=== PATIENT | female | born 1955 | race American Indian/Alaskan Native ===

== ENCOUNTER 2017-05-29 17:18 | Emergency (ER) | payer MEDICARE ==
[2017-05-29 18:19] LABS: Basophils % (Auto) 0.8 % (0.0-1.8); Eosinophils % (Auto) 3.1 % (0.0-4.3); Hematocrit 36.3 % (30.3-42.9); Hemoglobin 12.2 gm/dl (10.1-14.3); Mean Corpuscular HGB Conc 34 % (30-34); Mean Corpuscular Hemoglobin 30 pg (28-32); Mean Corpuscular Volume 89 fl (79-97); Platelet Count 185 K/mm3 (140-440); Red Cell Distribution Width 15.3 % (13.2-15.2); White Blood Count 7.8 K/mm3 (4.5-11.0)
[2017-05-29 18:31] LABS: INR 1.72 (0.87-1.13)
[2017-05-29 18:53] LABS: Anion Gap 19 mmol/L; Blood Urea Nitrogen 7 mg/dL (7-17); Calcium 9.2 mg/dL (8.4-10.2); Carbon Dioxide 25 mmol/L (22-30); Chloride 99.7 mmol/L (98-107); Glucose 75 mg/dL (65-100); Potassium 4.1 mmol/L (3.6-5.0); Sodium 140 mmol/L (137-145)
--- NOTE | 2017-05-29 19:20 | XRay Report ---
FINAL REPORT EXAM: XR CHEST ROUTINE 2V HISTORY: Shortness of breath TECHNIQUE: PA and lateral chest radiographs PRIORS: None. FINDINGS: No mediastinal shift. Cardiac silhouette is not enlarged. No pneumothorax, effusion, or focal pulmonary opacity. Mild lower lung interstitial prominence. No acute skeletal finding. IMPRESSION: Mild lower lung interstitial prominence may be secondary to edema or infection. No focal airspace disease.
[2017-05-29] MEDS ORDERED: MORPHINE IM ONE (23:42)
[2017-05-29] MEDS ORDERED: TORADOL IM ONE (23:43)
[2017-05-29] MEDS ORDERED: LASIX PO ONE (23:43)
[2017-05-29] MEDS ORDERED: ZOFRAN IM ONE (23:43)
--- NOTE | 2017-05-29 23:48 | Emergency Department Report ---
HPI - General Chief Complaint: Back Pain/Injury Time Seen by Provider: 05/29/17 23:35 - HPI HPI: Room 3 The patient is a 61-year-old female presenting with a chief complaint of back and right lower extremity pain. The patient states she has a history of this pain is usually followed in a pain clinic. The patient states she ran out of her pain medication 5 days ago saw her pain is now uncontrolled. The patient states she recently changed insurance and her pain clinic does not accept the new coverage. Patient states she has not been given a referral to another pain clinic. Patient denies any other complaints when asked. Patient does acknowledge she has not been taking her diuretic as prescribed because she does not like went to the bathroom frequently. The patient gives her pain a score of 10/10 Location: Right lower extremity/hip Duration: Uncontrolled times 5 days, see above Quality: Pain Severity: 10/10 Modifying factors: [see above] Context: [see above] Mode of transportation: [not driving] ED Past Medical Hx - Past Medical History Hx Hypertension: Yes Hx Congestive Heart Failure: Yes Hx Deep Vein Thrombosis: Yes (LEFT LEG) Hx Arthritis: Yes Additional medical history: CHRONIC BACK PAIN. HIGH CHOLESTEROL - Surgical History Hx Breast Surgery: Yes (L breast x3 secondary to mass) Additional Surgical History: left breast surgery x 3 secondary to mass, back surgery 08, hysterectomy - Family History Family history: no significant - Social History Smoking Status: Current Every Day Smoker (1/2 pack per day) Substance Use Type: None (denies illicit drug use), Prescribed - Medications Home Medications: Home Medications Medication Instructions Recorded Confirmed Last Taken Type ALPRAZolam [Xanax TAB] 1 mg PO BID PRN 12/24/13 06/08/16 11/28/15 History Oxycodone HCl/Acetaminophen 1 each PO Q6HR PRN 12/24/13 06/08/16 11/29/15 History [Percocet 10/325 mg] Potassium Chloride [K-Dur] 10 meq PO QDAY 12/24/13 06/08/16 11/22/15 History Pravastatin (Nf) [Pravachol] 40 mg PO QHS 12/24/13 06/08/16 11/22/15 History Warfarin [Coumadin] 5 mg PO QDAY 12/24/13 06/08/16 11/22/15 History B12/Levomefolate Calcium/B-6 1 each PO DAILY 06/08/14 06/08/16 10/25/15 History [Folbic Rf Tablet] Folic Acid [Folvite] 1 mg PO QDAY 06/08/14 06/08/16 11/15/15 History Warfarin [Coumadin] 5 mg PO QDAY #10 tablet 11/30/15 06/08/16 Unknown Rx traMADol [Ultram] 50 mg PO Q6HR PRN #10 tablet 11/30/15 06/08/16 Unknown Rx ALPRAZolam [Alprazolam] 06/08/16 Unknown History ALPRAZolam [Alprazolam] 06/08/16 Unknown History ALPRAZolam [Alprazolam] 1 mg PO DAILY 06/08/16 06/08/16 Unknown History ALPRAZolam [Alprazolam] 1 mg PO DAILY 06/08/16 06/08/16 Unknown History Triamter/Hctz 75-50 mg [Maxzide 1 tab PO QDAY 06/08/16 06/08/16 Unknown History 75-50 mg] oxyCODONE /ACETAMINOPHEN [Percocet 1 tab PO Q6HR PRN #20 tablet 06/08/16 Unknown Rx 5/325] Ibuprofen [Motrin 800 MG tab] 800 mg PO Q8HR PRN #20 tablet 05/29/17 Unknown Rx oxyCODONE /ACETAMINOPHEN [Percocet 1 tab PO Q6HR PRN #20 tablet 05/29/17 Unknown Rx 5/325] ED Review of Systems ROS: Stated complaint: BACK AND LEG PAIN Other details as noted in HPI Comment: All other systems reviewed and negative Constitutional: denies: chills, fever Eyes: denies: eye pain, eye discharge, vision change ENT: denies: ear pain, throat pain Respiratory: denies: cough, shortness of breath, wheezing Cardiovascular: denies: chest pain, palpitations Endocrine: no symptoms reported Gastrointestinal: denies: abdominal pain, nausea, diarrhea Genitourinary: denies: urgency, dysuria, discharge Musculoskeletal: back pain, arthralgia, myalgia Skin: denies: rash, lesions Neurological: denies: headache, weakness, paresthesias Psychiatric: denies: anxiety, depression Hematological/Lymphatic: denies: easy bleeding, easy bruising Physical Exam - Physical Exam Vital Signs: Vital Signs 05/29/17 05/29/17 17:45 23:13 Temperature 98.4 F 98.7 F Pulse Rate 95 H 88 Respiratory 20 18 Rate Blood Pressure 170/114 155/108 O2 Sat by Pulse 95 Oximetry Physical Exam: GENERAL: The patient is well-developed well-nourished female sitting on stretcher not appearing to be in acute distress. [] HEENT: Normocephalic. Atraumatic. Extraocular motions are intact. Patient has moist mucous membranes. NECK: Supple. Trachea midline CHEST/LUNGS: Clear to auscultation. There is no respiratory distress noted. HEART/CARDIOVASCULAR: Regular. There is no tachycardia. There is no gallop rub or murmur. ABDOMEN: Abdomen is soft, nontender. Patient has normal bowel sounds. There is no abdominal distention. SKIN: There is no rash. There is no diaphoresis. NEURO: The patient is awake, alert, and oriented. The patient is cooperative. The patient has normal speech MUSCULOSKELETAL: There is no evidence of acute injury. ED Course Vital Signs 05/29/17 05/29/17 17:45 23:13 Temperature 98.4 F 98.7 F Pulse Rate 95 H 88 Respiratory 20 18 Rate Blood Pressure 170/114 155/108 O2 Sat by Pulse 95 Oximetry ED Medical Decision Making - Lab Data Result diagrams: 05/29/17 18:06 05/29/17 18:06 Laboratory Tests 05/29/17 05/29/17 05/29/17 18:06 18:06 18:06 WBC 7.8 RBC 4.10 Hgb 12.2 Hct 36.3 MCV 89 MCH 30 MCHC 34 RDW 15.3 H Plt Count 185 Lymph % (Auto) 25.7 Ballard % (Auto) 8.0 H Eos % (Auto) 3.1 Baso % (Auto) 0.8 Lymph # 2.0 Ballard # 0.6 Eos # 0.2 Baso # 0.1 Seg Neutrophils % 62.4 Seg Neutrophils # 4.9 PT 21.1 H INR 1.72 H Sodium 140 Potassium 4.1 Chloride 99.7 Carbon Dioxide 25 Anion Gap 19 BUN 7 Creatinine 0.4 L Estimated GFR > 60 BUN/Creatinine Ratio 17.50 Glucose 75 Calcium 9.2 Troponin T < 0.010 NT-Pro-B Natriuret Pep 341.4 - EKG Data -: EKG Interpreted by Me EKG shows normal: sinus rhythm Rate: normal - EKG Data When compared to previous EKG there are: no significant change Interpretation: unchanged when compared t (06/08/2016) - Radiology Data Radiology results: image reviewed (chest x-ray) interpreted by me: Chest x-ray-no focal infiltrates, no pneumothorax - Differential Diagnosis sciatica, lumbar radiculopathy, chronic back pain Critical care attestation.: If time is entered above; I have spent that time in minutes in the direct care of this critically ill patient, excluding procedure time. ED Disposition Clinical Impression: Medication refill, Lumbar radiculopathy, chronic, Chronic back pain Disposition: TO HOME OR SELFCARE Is pt being admited?: No Does the pt Need Aspirin: No Condition: Stable Instructions: Chronic Back Pain (ED) Additional Instructions: Return to the emergency department immediately should you develop worsening symptoms, fever, inability to tolerate food or liquid or any other concerns. Prescriptions: Ibuprofen [Motrin 800 MG tab] 800 mg PO Q8HR PRN #20 tablet PRN Reason: Pain oxyCODONE /ACETAMINOPHEN [Percocet 5/325] 1 tab PO Q6HR PRN #20 tablet PRN Reason: Pain Referrals: PRIMARY CARE [Primary Care Provider] - 3-5 Days PAIN SPECIALIST [facility] [Provider Group] - 3-5 Days PAIN CARE, [facility] [Provider Group] - 3-5 Days Time of Disposition: 23:53
[2017-05-30 00:30] VITALS: BP 166/89
== END 2017-05-30 00:40 | disposition home or self-care (01) ==
LOC: ED 17:18
DX: M54.16 Radiculopathy, lumbar region (principal); M54.9 Dorsalgia, unspecified; G89.29 Other chronic pain; I10 Essential (primary) hypertension; I50.9 Heart failure, unspecified; Z86.718 Personal history of other venous thrombosis and embolism; F17.200 Nicotine dependence, unspecified, uncomplicated
CPT/HCPCS: 36415; 71020; 80048; 83880; 84484; 85025; 85610; 93005; 93010; 96372; 99284; J1885; J2270; J2405

== ENCOUNTER 2018-04-07 12:53 | Emergency (ER) | payer MEDICARE ==
[2018-04-07] MEDS ORDERED: ASPIRIN PO ONE (15:41)
--- NOTE | 2018-04-07 15:49 | Emergency Department Report ---
ED Chest Pain HPI - General Chief Complaint: Extremity Problem,Nontraumatic Stated Complaint: LT LEG PAIN Time Seen by Provider: 04/07/18 15:38 Source: EMS Mode of arrival: Stretcher Limitations: No Limitations - History of Present Illness Initial Comments: Back patient is 62-year-old female presents to emergency room with left lower extremity pain and swelling 1 week. Patient states the swelling is intermittent and has resolved now. Patient states that 1 day ago she started she developed chest pain and shortness of breath. Patient states history of DVTs in the past. Patient is compliant with all her medication and is currently taking Coumadin. MD Complaint: chest pain -: Sudden, days(s) (1 day ago) Onset: during rest Pain Location: substernal, left chest Pain Radiation: none Severity: moderate Severity scale (0 -10): 7 Quality: tightness, aching Consistency: constant Improves With: rest, remaining still Worsens With: exertion re: dyspnea. denies: nausea, vomting, diaphoresis, sense of impending doom Other Symptoms: leg swelling, palpitations. denies: cough, fever, syncope, rash , acid taste in mouth Treatments Prior to Arrival: oxygen Aspirin use within the Past 7 Days: (1) Yes - Related Data On Oral Contraceptives: No Home Medications Medication Instructions Recorded Confirmed Last Taken ALPRAZolam [Xanax TAB] 1 mg PO BID PRN 12/24/13 06/08/16 11/28/15 Oxycodone HCl/Acetaminophen 1 each PO Q6HR PRN 12/24/13 06/08/16 11/29/15 [Percocet 10/325 mg] Potassium Chloride [K-Dur] 10 meq PO QDAY 12/24/13 06/08/16 11/22/15 Pravastatin [Pravachol] 40 mg PO QHS 12/24/13 06/08/16 11/22/15 Warfarin [Coumadin] 5 mg PO QDAY 12/24/13 06/08/16 11/22/15 B12/Levomefolate Calcium/B-6 1 each PO DAILY 06/08/14 06/08/16 10/25/15 [Folbic Rf Tablet] Folic Acid [Folvite] 1 mg PO QDAY 06/08/14 06/08/16 11/15/15 ALPRAZolam [Alprazolam] 06/08/16 Unknown ALPRAZolam [Alprazolam] 06/08/16 Unknown ALPRAZolam [Alprazolam] 1 mg PO DAILY 06/08/16 06/08/16 Unknown ALPRAZolam [Alprazolam] 1 mg PO DAILY 06/08/16 06/08/16 Unknown Triamter/Hctz 75-50 mg (Nf) 1 tab PO QDAY 06/08/16 06/08/16 Unknown [Maxzide 75-50 mg] Previous Rx's Medication Instructions Recorded Last Taken Type Warfarin [Coumadin] 5 mg PO QDAY #10 tablet 11/30/15 Unknown Rx traMADol [Ultram] 50 mg PO Q6HR PRN #10 tablet 11/30/15 Unknown Rx oxyCODONE /ACETAMINOPHEN [Percocet 1 tab PO Q6HR PRN #20 tablet 06/08/16 Unknown Rx 5/325] Ibuprofen [Motrin 800 MG tab] 800 mg PO Q8HR PRN #20 tablet 05/29/17 Unknown Rx oxyCODONE /ACETAMINOPHEN [Percocet 1 tab PO Q6HR PRN #20 tablet 05/29/17 Unknown Rx 5/325] Allergies Allergy/AdvReac Type Severity Reaction Status Date / Time No Known Allergies Allergy Verified 05/29/17 17:38 Heart Score - HEART Score History: Moderately suspicious EKG: Normal Age: 45-65 Risk factors: > 3 risk factors or hx of atherosclerotic disease Troponin: < normal limit HEART Score: 4 ED Review of Systems ROS: Stated complaint: LT LEG PAIN Other details as noted in HPI Constitutional: denies: chills, fever Eyes: denies: eye pain, eye discharge, vision change ENT: denies: ear pain, throat pain Respiratory: shortness of breath, SOB with exertion, SOB at rest. denies: cough , wheezing Cardiovascular: chest pain, palpitations Endocrine: no symptoms reported Gastrointestinal: denies: abdominal pain, nausea, diarrhea Genitourinary: denies: urgency, dysuria, discharge Musculoskeletal: denies: back pain, joint swelling, arthralgia Skin: denies: rash, lesions Neurological: denies: headache, weakness, paresthesias Psychiatric: denies: anxiety, depression Hematological/Lymphatic: denies: easy bleeding, easy bruising ED Past Medical Hx - Past Medical History Previous Medical History?: Yes Hx Hypertension: Yes Hx Congestive Heart Failure: Yes Hx Deep Vein Thrombosis: Yes (LEFT LEG) Hx Arthritis: Yes Additional medical history: CHRONIC BACK PAIN. HIGH CHOLESTEROL - Surgical History Past Surgical History?: Yes Hx Breast Surgery: Yes (L breast x3 secondary to mass) Additional Surgical History: left breast surgery x 3 secondary to mass, back surgery 08, hysterectomy - Family History Family history: hypertension - Social History Smoking Status: Current Every Day Smoker Substance Use Type: None - Medications Home Medications: Home Medications Medication Instructions Recorded Confirmed Last Taken Type ALPRAZolam [Xanax TAB] 1 mg PO BID PRN 12/24/13 06/08/16 11/28/15 History Oxycodone HCl/Acetaminophen 1 each PO Q6HR PRN 12/24/13 06/08/16 11/29/15 History [Percocet 10/325 mg] Potassium Chloride [K-Dur] 10 meq PO QDAY 12/24/13 06/08/16 11/22/15 History Pravastatin [Pravachol] 40 mg PO QHS 12/24/13 06/08/16 11/22/15 History Warfarin [Coumadin] 5 mg PO QDAY 12/24/13 06/08/16 11/22/15 History B12/Levomefolate Calcium/B-6 1 each PO DAILY 06/08/14 06/08/16 10/25/15 History [Folbic Rf Tablet] Folic Acid [Folvite] 1 mg PO QDAY 06/08/14 06/08/16 11/15/15 History Warfarin [Coumadin] 5 mg PO QDAY #10 tablet 11/30/15 06/08/16 Unknown Rx traMADol [Ultram] 50 mg PO Q6HR PRN #10 tablet 11/30/15 06/08/16 Unknown Rx ALPRAZolam [Alprazolam] 06/08/16 Unknown History ALPRAZolam [Alprazolam] 06/08/16 Unknown History ALPRAZolam [Alprazolam] 1 mg PO DAILY 06/08/16 06/08/16 Unknown History ALPRAZolam [Alprazolam] 1 mg PO DAILY 06/08/16 06/08/16 Unknown History Triamter/Hctz 75-50 mg (Nf) 1 tab PO QDAY 06/08/16 06/08/16 Unknown History [Maxzide 75-50 mg] oxyCODONE /ACETAMINOPHEN [Percocet 1 tab PO Q6HR PRN #20 tablet 06/08/16 Unknown Rx 5/325] Ibuprofen [Motrin 800 MG tab] 800 mg PO Q8HR PRN #20 tablet 05/29/17 Unknown Rx oxyCODONE /ACETAMINOPHEN [Percocet 1 tab PO Q6HR PRN #20 tablet 05/29/17 Unknown Rx 5/325] ED Physical Exam - General Limitations: No Limitations General appearance: alert, in no apparent distress - Head Head exam: Present: atraumatic, normocephalic - Eye Eye exam: Present: normal appearance - ENT ENT exam: Present: mucous membranes moist - Neck Neck exam: Present: normal inspection - Respiratory Respiratory exam: Present: normal lung sounds bilaterally. Absent: respiratory distress - Cardiovascular Cardiovascular Exam: Present: regular rate, normal rhythm. Absent: systolic murmur, diastolic murmur, rubs, gallop - GI/Abdominal GI/Abdominal exam: Present: soft, normal bowel sounds - Extremities Exam Extremities exam: Present: normal inspection, full ROM, tenderness (left leg tenderness. left calf tenderness) - Back Exam Back exam: Present: normal inspection - Neurological Exam Neurological exam: Present: alert, oriented X3 - Psychiatric Psychiatric exam: Present: normal affect, normal mood - Skin Skin exam: Present: warm, dry, intact, normal color. Absent: rash ED Course Vital Signs 04/07/18 04/07/18 04/07/18 14:03 14:04 14:15 Temperature 97.5 F L Pulse Rate 85 87 84 Respiratory 12 12 16 Rate Blood Pressure 106/71 116/81 Blood Pressure 106/71 [Right] O2 Sat by Pulse 98 95 99 Oximetry 04/07/18 04/07/18 04/07/18 14:27 14:30 14:45 Temperature 97.5 F L Pulse Rate 85 78 86 Respiratory 12 15 19 Rate Blood Pressure 106/71 108/77 109/62 Blood Pressure 106/71 [Right] O2 Sat by Pulse 98 97 97 Oximetry 04/07/18 04/07/18 04/07/18 15:00 15:15 15:30 Temperature Pulse Rate 75 84 Respiratory 12 14 18 Rate Blood Pressure 110/80 111/72 117/79 Blood Pressure [Right] O2 Sat by Pulse 99 96 98 Oximetry 04/07/18 04/07/1804/07/18 15:45 16:00 16:52 Temperature Pulse Rate 74 76 78 Respiratory 12 13 17 Rate Blood Pressure 104/74 104/75 104/75 Blood Pressure [Right] O2 Sat by Pulse 99 98 Oximetry 04/07/18 04/07/18 04/07/18 17:00 17:15 17:30 Temperature Pulse Rate 77 89 Respiratory 22 20 20 Rate Blood Pressure 116/83 122/80 117/82 Blood Pressure [Right] O2 Sat by Pulse 100 99 Oximetry 04/07/18 04/07/18 04/07/18 17:45 18:00 18:15 Temperature Pulse Rate 78 81 Respiratory 17 19 15 Rate Blood Pressure 108/78 116/79 110/76 Blood Pressure [Right] O2 Sat by Pulse 97 96 97 Oximetry 04/07/18 04/07/18 04/07/18 18:30 18:45 19:00 Temperature Pulse Rate Respiratory 13 18 15 Rate Blood Pressure 117/81 116/80 105/77 Blood Pressure [Right] O2 Sat by Pulse 98 98 99 Oximetry 04/07/18 19:30 Temperature 98.2 F Pulse Rate 82 Respiratory 18 Rate Blood Pressure Blood Pressure 105/77 [Right] O2 Sat by Pulse 100 Oximetry - Reevaluation(s) Reevaluation #1: Discussed plan of care with patient. Patient agreed to be admitted to the hospital. DVT leg negative. Hospitalist consult for admission. Hospitalist to assume care. 04/07/18 18:39 Reevaluation #2: [facility] ED Female : 1955 MedRec# [id number] 04/07/18 16:46 - Radiology Dept. Note by RELL MEEKS Acct Num: [id number] : 1955 Patient Age: 62 BLE VENOUS DUPLEX COMPLETED. VAS LAB PRELIMINARY REPORT; NO EVIDENCE OF ACUTE DVT/ SVT NOTED IN VESSELS/SEGMENTS EXAMINED, BLE. PHYSICIANS REPORT TO FOLLOW... (RSK) COREY score - Corey Score Age > 65: (0) No Aspirin use within the Past 7 Days: (1) Yes 3 or more CAD Risk Factors: (1) Yes 2 or more Angina events in past 24 hrs: (0) No Known CAD with more than 50% Stenosis: (0) No Elevated Cardiac Markers: (0) No ST Deviation Greater than 0.5mm: (0) No COREY Score: 2 ED Medical Decision Making - Lab Data Result diagrams: 04/07/18 15:52 04/07/18 15:52 - EKG Data -: EKG Interpreted by Me EKG shows normal: sinus rhythm, axis, intervals, QRS complexes, ST-T waves Rate: normal - Radiology Data Radiology results: report reviewed Negative chest x-ray - Medical Decision Making Patient is a 62-year-old female presents emergency room with left lower extremity pain and chest pain shortness of breath. Will admit patient to hospitalist service for further evaluation and treatment. - Differential Diagnosis chest pain. PE. Shortness of breath. ACS. Leg pain Critical care attestation.: If time is entered above; I have spent that time in minutes in the direct care of this critically ill patient, excluding procedure time. ED Disposition Clinical Impression: Shortness of breath Chest pain Qualifiers: Chest pain type: unspecified Qualified Code(s): R07.9 - Chest pain, unspecified Leg pain Qualifiers: Laterality: left Qualified Code(s): M79.605 - Pain in left leg Disposition: -09 OP ADMIT IP TO THIS HOSP Is pt being admited?: Yes Does the pt Need Aspirin: No Condition: Serious Time of Disposition: 18:41
[2018-04-07 16:05] LABS: Hematocrit 39.9 % (30.3-42.9); Hemoglobin 13.1 gm/dl (10.1-14.3); Mean Corpuscular HGB Conc 33 % (30-34); Mean Corpuscular Hemoglobin 29 pg (28-32); Mean Corpuscular Volume 88 fl (79-97); Platelet Count 212 K/mm3 (140-440); Red Blood Count 4.51 M/mm3 (3.65-5.03); Red Cell Distribution Width 15.8 % (13.2-15.2)
[2018-04-07 16:14] LABS: INR 1.01 (0.87-1.13)
[2018-04-07 16:15] LABS: Partial Thromboplastin Time 22.6 Sec. (24.2-36.6)
--- NOTE | 2018-04-07 16:34 | XRay Report ---
FINAL REPORT EXAM: XR CHEST 1V AP HISTORY: Chest Pain TECHNIQUE: upright single view chest PRIORS: Comparison is May 29, 2017 FINDINGS: Cardiac and mediastinal contours are unremarkable. No focal pulmonary infiltrate is identified. No pleural fluid collection seen. Pulmonary vasculature is unremarkable. IMPRESSION: Negative single-view chest
[2018-04-07 16:38] LABS: Alanine Aminotransferase 6 units/L (7-56); Albumin 3.7 g/dL (3.9-5); BUN/Creatinine Ratio 20; Blood Urea Nitrogen 12 mg/dL (7-17); Calcium 8.6 mg/dL (8.4-10.2); Hemolysis Index 6
[2018-04-07 17:15] LABS: Basophils % (Manual) 0 % (0.0-1.8); Total Cells Counted 100
[2018-04-07 17:16] LABS: RBC Morphology Normal
--- NOTE | 2018-04-07 20:22 | Cat Scan Report ---
FINAL REPORT EXAM: CT ANGIO CHEST HISTORY: sob. cp. elevated d-dmer TECHNIQUE: CT chest CT angiogram with intravenous contrast and maximum intensity and multiplanar reconstructions PRIORS: None. FINDINGS: There is no evidence of filling defect within the central pulmonary vasculature to suggest the presence of acute pulmonary embolus. No evidence of mediastinal pathologic lymph node enlargement Heart and great vessels are unremarkable. The aorta is normal in caliber. No focal pulmonary infiltrate identified. There are centrilobular pulmonary emphysematous changes most prominent in the upper lobes. No pleural fluid collection seen. No acute pulmonary abnormality noted. Mild scarring noted at the bases. Visualized portion of the upper abdomen demonstrates no acute change. IMPRESSION: Centrilobular pulmonary emphysematous changes No CT evidence of acute pulmonary embolus
[2018-04-07] MEDS ORDERED: NACL 0.9% 1000 ML 1,000 ML ONE (21:24)
[2018-04-07] MEDS ORDERED: D5W IV ONE (21:32)
[2018-04-07] MEDS ORDERED: DRIP IV ONE (21:32)
[2018-04-07] MEDS ORDERED: XYLOCAINE IV ONE (21:32)
--- NOTE | 2018-04-07 22:54 | Event Note ---
Date: 04/07/18 C/o RLE pain and Chest wall pain On/exam Rt Chest wall tenderness present RLE tenderness present Dorsalis pedis well felt CTA and Right LE Duplex scan negative A/p Costochondritis RLE pain D/c on Meloxicam 15 mg po qd
[2018-04-08 00:39] VITALS: BP 125/82
== END 2018-04-08 00:40 | disposition home or self-care (01) ==
LOC: ED 12:53
DX: R07.9 Chest pain, unspecified (principal); M79.605 Pain in left leg; R06.02 Shortness of breath; I10 Essential (primary) hypertension; I50.9 Heart failure, unspecified; M19.90 Unspecified osteoarthritis, unspecified site; E78.00 Pure hypercholesterolemia, unspecified; F17.200 Nicotine dependence, unspecified, uncomplicated; Z86.718 Personal history of other venous thrombosis and embolism; Z79.01 Long term (current) use of anticoagulants
CPT/HCPCS: 36415; 71045; 71275; 80053; 83880; 84484; 85007; 85025; 85379; 85610; 85730; 93005; 93010; 93970; 99285; J7030; Q9967; J2001